=== PATIENT | female | born 1950 | race Caucasian/White ===

== ENCOUNTER 2019-06-07 23:00 | Emergency (ER) | payer MEDICARE ==
[~2019-06-07] VITALS: Ht 160 cm; Wt 102.1 kg
[2019-06-07] MEDS ORDERED: cloNIDine HCL 0.1 MG TABLET PO ONE (23:15)
--- NOTE | 2019-06-07 23:30 | PHYS DOC ---
Adult General Chief Complaint Chief Complaint: HYPERTENSION HPI HPI 69-year-old female presents to the emergency department for elevated blood pressure. Patient was just discharged from [facility] today after a stay for seizure. [facility] with elevated [facility] pressure subsequent was sent here for further evaluation. Patient is asymptomatic at this time. She denies any headache, visual change, chest pain, short of breath. Patient did have some nausea however this subsequently resolved. Daughter is at bedside. Patient's underlying history of chronic respiratory failure, diabetes, hypertension, anxiety, estrogen sleep apnea, anemia. Nothing makes her symptoms worse, nothing makes her symptoms better. Review of Systems Review of Systems Constitutional: Denies fever or chills [] Respiratory: Denies cough or shortness of breath [] Cardiovascular: No additional information not addressed in HPI [] GI: Denies abdominal pain, nausea, vomiting, bloody stools or diarrhea [] Musculoskeletal: Denies back pain or joint pain [] Integument: Denies rash or skin lesions [] Neurologic: Denies headache, focal weakness or sensory changes [] All other systems were reviewed and found to be within normal limits, except as documented in this note. Current Medications Current Medications Current Medications Medications (Trade) Dose Ordered Sig/Nalini Start Time Stop Time Status Last Admin Dose Admin Clonidine HCl (Catapres) 0.2 mg 1X ONCE 06/07/19 23:15 06/07/19 23:17 DC 06/07/19 23:15 0.2 MG Hydralazine HCl (Apresoline) 25 mg ONCE ONCE 06/07/19 23:55 06/07/19 23:56 DC 06/07/19 23:56 25 MG Allergies Allergies Allergies Coded Allergies Type Severity Reaction Last Updated Verified No Known Drug Allergies 06/07/19 No Physical Exam Physical Exam Constitutional: Well developed, well nourished, no acute distress, non-toxic appearance. [] HENT: Normocephalic, atraumatic, bilateral external ears normal, oropharynx m oist, no oral exudates, nose normal. [] Eyes: PERRLA, EOMI, conjunctiva normal, no discharge. [] Cardiovascular:Heart rate regular rhythm, no murmur [] Lungs & Thorax: Bilateral breath sounds clear to auscultation [] Abdomen: Bowel sounds normal, soft, no tenderness, no masses, no pulsatile masses. [] Skin: Warm, dry, no erythema, no rash. [] Extremities: No tenderness, trace edema. [] Neurologic: Alert and oriented X 3, no focal deficits noted. [] Psychologic: Affect normal, judgement normal, mood normal. [] Current Patient Data Vital Signs Vital Signs Date Time Temp Pulse Resp B/P (MAP) Pulse Ox O2 Delivery O2 Flow Rate FiO2 06/08/19 00:20 70 14 98 06/07/19 23:56 206/88 06/07/19 23:00 97.7 Nasal Cannula 3.0 97.7 EKG EKG [] Radiology/Procedures Radiology/Procedures [] Course & Med Decision Making Course & Med Decision Making Pertinent Labs and Imaging studies reviewed. (See chart for details) []69-year-old female presents to the emergency department for elevated blood pressure. Patient was just discharged from [facility] today after a stay for seizure. [facility] with [facility] pressure subsequent was sent here for further evaluation. Patient is asymptomatic at this time. She denies any headache, visual change, chest pain, short of breath. Patient did have some nausea however this subsequently resolved. Daughter is at bedside. Patient's underlying history of chronic respiratory failure, diabetes, hypertension, anxiety, estrogen sleep apnea, anemia. Nothing makes her symptoms worse, nothing makes her symptoms better. Clonidine 0.2mg po x 1 Hydralazine 25mg po x 1 Repeat BP 171/75, hr 65 No labs at this time given patient just dc from hospital today Will observe in the ER with plans for dc back to facility Dragon Disclaimer Dragon Disclaimer This electronic medical record was generated, in whole or in part, using a voice recognition dictation system. Departure Departure Impression: Primary Impression: Hypertensive urgency Disposition: 03 TRANSFER SNF Condition: IMPROVED Patient Instructions: Hypertension, [id number] Additional Instructions: Recommend follow up with PCP 3 - 5 days Return to the ER with worsening symptoms, intractable pain, fever, altered mental status Tylenol/Motrin as needed for pain Take home medications as prescribed Elevation of BP likely multifactorial AZEEM SALES MD Jun 07, 2019 23:30
[2019-06-07] MEDS ORDERED: hydrALAZINE 25 MG TABLET PO SCH (23:55)
[2019-06-07] MEDS ORDERED: hydrALAZINE 25 MG TABLET PO ONE (23:55)
[2019-06-08 00:20] VITALS: BP 171/75
== END 2019-06-08 02:08 | disposition home or self-care (01) ==
LOC: ER 23:00
DX: I16.0 Hypertensive urgency (principal); E11.9 Type 2 diabetes mellitus without complications; F41.9 Anxiety disorder, unspecified
CPT/HCPCS: 99283